=== PATIENT | male | born 1970 | race Caucasian/White ===

== ENCOUNTER → 2016-08-18 | Outpatient (REF) ==
--- NOTE | 2016-08-18 09:46 | DI ---
EXAM: CHEST FRONTAL AND LATERAL VIEWS HISTORY: Screening. [place]. COMPARISON: 07/20/2014 FINDINGS: Heart size and mediastinal contour remain within normal limits. No acute infiltrates. Normal vascularity with no pleural fluid or pneumothorax. The bony thorax has no acute finding. IMPRESSION: No obvious change. No acute process.
== END ==
LOC: RAD 09:21
DX: Z02.89 Encounter for other administrative examinations (principal)